=== PATIENT | male | born 1965 | race Caucasian/White ===

== ENCOUNTER 2022-01-28 13:49 | Outpatient (CLI) | payer OTHER, SELFPAY ==
[2022-01-28 16:02] LABS: AST(SGOT) 23 U/L (15-37); Alanine Aminotransfer ALT/SGPT 37 U/L (16-61); Cholesterol 218 mg/dL (200); High Density Lipoprotein 56 mg/dL; Triglycerides 166 mg/dL; Very Low Density Lipoprotein 33 mg/dL (5-40)
== END 2022-01-28 23:59 | disposition home or self-care (01) ==
PROVIDERS: PCP Family Medicine; Referring Provider Dermatology; Visit Provider Dermatology
DX: L70.0 Acne vulgaris (principal); L90.5 Scar conditions and fibrosis of skin; L20.84 Intrinsic (allergic) eczema; Z79.899 Other long term (current) drug therapy
CPT/HCPCS: 36415; 80061; 84450; 84460

== ENCOUNTER → 2022-03-30 | Outpatient (CLI) | payer OTHER, SELFPAY ==
[2022-03-30 17:54] LABS: AST(SGOT) 27 U/L (15-37); Alanine Aminotransfer ALT/SGPT 35 U/L (16-61); Cholesterol 214 mg/dL (200); High Density Lipoprotein 42 mg/dL; Triglycerides 265 mg/dL; Very Low Density Lipoprotein 53 mg/dL (5-40)
== END | disposition home or self-care (01) ==
PROVIDERS: PCP Family Medicine; Referring Provider Dermatology; Visit Provider Dermatology
DX: L70.0 Acne vulgaris (principal); L90.5 Scar conditions and fibrosis of skin; K13.0 Diseases of lips; L23.3 Allergic contact dermatitis due to drugs in contact with skin; Z79.899 Other long term (current) drug therapy
CPT/HCPCS: 36415; 80061; 84450; 84460